=== PATIENT | male | born 1950 | race African-American/Black ===

== ENCOUNTER 2024-02-17 17:07 | Inpatient (IN) | payer MEDICARE ==
[~2024-02-17] VITALS: Ht 188 cm; Wt 81.6 kg
[2024-02-17 17:14] VITALS: O2SAT 96
[2024-02-17 19:02] LABS: CLARITY URINE CLEAR (CLEAR); COLOR URINE DARK YELLOW (YELLOW); GLUCOSE URINE NEGATIVE (NEGATIVE); KETONES URINE NEGATIVE (NEGATIVE); LEUKOCYTE ESTERASE URINE TRACE (NEGATIVE); NITRITE URINE NEGATIVE (NEGATIVE); OCCULT BLOOD URINE TRACE (NEGATIVE); PROTEIN URINE NEGATIVE (NEGATIVE); SPECIFIC GRAVITY URINE 1.011 (1.005-1.030)
[2024-02-17 19:22] LABS: SQUAMOUS EPITHELIAL CELL URINE NONE SEEN /lpf (RARE/1+); WBC URINE 0-2 /hpf (0-2)
[2024-02-17 19:23] LABS: BACTERIA URINE 1+
[2024-02-17 19:30] LABS: HEMATOCRIT. 32.6 % (42.0-52.0); HEMOGLOBIN. 10.3 g/dL (14.0-18.0); MEAN CORPUSCULAR HEMOGLOBIN 34.3 pg (28.0-32.0); MEAN CORPUSCULAR HGB CONC 31.6 g/dL (31.0-37.0); MEAN CORPUSCULAR VOLUME 108.6 fL (80.0-94.0); MEAN PLATELET VOLUME 8.5 fl (7.4-10.4); PLATELET 386 x1000/uL (130-400); RED CELL DISTRIBUTION WIDTH 20.3 % (11.6-14.6); WHITE BLOOD COUNT 20.4 x1000/uL (4.5-11.0)
[2024-02-17 19:31] LABS: CHLORIDE 99 mEq/L (98-107); SODIUM 140 mEq/L (136-145)
[2024-02-17 19:32] LABS: CALCIUM 9.6 mg/dL (8.7-10.4); CARBON DIOXIDE 16 mEq/L (21-32); DIFFERENTIAL COMMENT 1
[2024-02-17 19:33] LABS: INR 1.3; PROTHROMBIN TIME 14.3 sec (9.6-11.0)
[2024-02-17 19:37] LABS: CREATININE 2.9 mg/dL (0.6-1.3); GLUCOSE 230 mg/dL (70-105); UREA NITROGEN BLOOD 26 mg/dL (9-23)
[2024-02-17 19:39] LABS: ALANINE AMINOTRANSFERASE 23 IU/L (10-49); ALBUMIN 4.4 g/dL (3.2-4.8); ASPARTATE AMINOTRANSFERASE 67 IU/L (<34); BILIRUBIN DIRECT 0.5 mg/dL (<=3.0); BILIRUBIN TOTAL 1.3 mg/dL (0.1-1.0)
[2024-02-17 20:04] LABS: ANISOCYTOSIS 1+; NUCLEATED RED BLOOD CELLS 2 /100 WBC; PLATELET ESTIMATE NORMAL
[2024-02-17 20:08] LABS: POTASSIUM 2.6 mEq/L (3.5-5.1)
[2024-02-17 20:09] LABS: TROPONIN I HIGH SENSITIVITY 81 ng/L (3.0-53)
[2024-02-17] MEDS: POTASSIUM CHLORIDE 20MEQ/PACKET PO NR (20:55)
[2024-02-17] MEDS: SODIUM CHL 0.9% + KCL 20MEQ/L 1,000 ML IV ONE (21:06)
[2024-02-18] VITALS: BP_SYST 122; BP_SYST 144; BP_DIAS 71; PULSE 125; RESP 18; TEMP 97.3
[2024-02-18] MEDS ORDERED: METF-873 MT (02:17)
[2024-02-18] MEDS ORDERED: PANT40TA51 MT (02:17)
[2024-02-18] MEDS ORDERED: LISI-186 MT (02:17)
[2024-02-18] MEDS ORDERED: ATOR20TA65 MT (02:17)
[2024-02-18] MEDS ORDERED: ASPI-1160 MT (02:17)
[2024-02-18 04:35] VITALS: BP 141/71; PULSE 125; RESP 20; TEMP 97.3
[2024-02-18] MEDS ORDERED: DEXTROSE 50% WATER 50ML SYRINGE IV PRN (06:00)
[2024-02-18] MEDS ORDERED: HYDROCODONE/ACETAMINOPHEN 5/325MG TABLET PO PRN (06:00)
[2024-02-18] MEDS ORDERED: ACETAMINOPHEN 325MG TABLET PO PRN ×2 (06:00→20:00)
[2024-02-18] MEDS: BLOOD SUGAR DIAGNOSTIC STRIP TEST SCH (06:31)
[2024-02-18] MEDS: INSULIN LISPRO 100 UNITS/ML SUBCUT SCH (06:34)
[2024-02-18 08:00] VITALS: BP 141/82; PULSE 116; RESP 18; TEMP 97.9
[2024-02-18] MEDS: ENOXAPARIN 40MG/0.4ML SYR SUBCUT SCH (09:34)
[2024-02-18 12:00] VITALS: BP_SYST 115; BP_SYST 117; BP_DIAS 72; BP_DIAS 84; PULSE 119; RESP 18; RESP 19; TEMP 97.5
[2024-02-18 12:37] LABS: HEMATOCRIT. 30.2 % (42.0-52.0); HEMOGLOBIN. 9.7 g/dL (14.0-18.0); MEAN CORPUSCULAR HEMOGLOBIN 34.8 pg (28.0-32.0); MEAN CORPUSCULAR VOLUME 108.7 fL (80.0-94.0); PLATELET 342 x1000/uL (130-400); RED BLOOD CELL COUNT 2.78 mill/uL (4.7-6.1); RED CELL DISTRIBUTION WIDTH 19.9 % (11.6-14.6); WHITE BLOOD COUNT 15.8 x1000/uL (4.5-11.0)
[2024-02-18 12:43] LABS: DIFFERENTIAL COMMENT 1
[2024-02-18 12:47] LABS: POTASSIUM 3.1 mEq/L (3.5-5.1)
[2024-02-18 12:48] LABS: CALCIUM 8.9 mg/dL (8.7-10.4)
[2024-02-18 12:52] LABS: CREATININE 2.5 mg/dL (0.6-1.3)
[2024-02-18] MEDS: POTASSIUM CHLORIDE 20MEQ/PACKET PO NR (14:06)
[2024-02-18] MEDS: METOPROLOL TARTRATE 25MG TABLET PO SCH (15:24)
[2024-02-18] MEDS: ASPIRIN 81MG EC TABLET PO SCH (15:24)
[2024-02-18 16:00] VITALS: BP 124/68; PULSE 107; RESP 18; TEMP 97.7
[2024-02-18] MEDS ORDERED: NALOXONE HCL 0.4MG/ML VIAL IV PRN (17:30)
[2024-02-18 17:44] LABS: HEMATOCRIT. 27.8 % (42.0-52.0); HEMOGLOBIN. 9.1 g/dL (14.0-18.0); MEAN CORPUSCULAR HEMOGLOBIN 34.5 pg (28.0-32.0); MEAN CORPUSCULAR HGB CONC 32.7 g/dL (31.0-37.0); MEAN CORPUSCULAR VOLUME 105.4 fL (80.0-94.0); MEAN PLATELET VOLUME 8.2 fl (7.4-10.4); PLATELET 302 x1000/uL (130-400); RED BLOOD CELL COUNT 2.64 mill/uL (4.7-6.1); RED CELL DISTRIBUTION WIDTH 19.7 % (11.6-14.6); WHITE BLOOD COUNT 14.8 x1000/uL (4.5-11.0)
[2024-02-18 17:45] LABS: DIFFERENTIAL COMMENT 1
[2024-02-18 18:06] LABS: CHLORIDE 107 mEq/L (98-107); POTASSIUM 3.4 mEq/L (3.5-5.1); SODIUM 142 mEq/L (136-145)
[2024-02-18 18:07] LABS: CARBON DIOXIDE 23 mEq/L (21-32)
[2024-02-18 18:09] LABS: HYPOCHROMASIA 1+; PLATELET ESTIMATE NORMAL
[2024-02-18 18:12] LABS: CREATININE 2.2 mg/dL (0.6-1.3); GLUCOSE 159 mg/dL (70-105)
[2024-02-18 18:13] LABS: UREA NITROGEN BLOOD 39 mg/dL (9-23)
[2024-02-18 18:19] LABS: PLATELET ESTIMATE NORMAL
[2024-02-18 18:25] LABS: CREATINE KINASE 1494 IU/L (46-171)
[2024-02-18 20:00] VITALS: BP 134/91; PULSE 118; RESP 19; TEMP 98.2
[2024-02-18] MEDS ORDERED: CLONIDINE 0.1MG TABLET PO PRN (20:00)
[2024-02-18] MEDS ORDERED: ONDANSETRON HCL 4MG/2ML INJ IV PRN (20:00)
[2024-02-18] MEDS ORDERED: ENOXAPARIN 40MG/0.4ML SYR SUBCUT SCH (20:00)
[2024-02-18] MEDS: CEFTRIAXONE 2GM/50ML 50 ML IV SCH (20:53)
[2024-02-18] MEDS: ATORVASTATIN CALCIUM 40MG TABLET PO SCH (20:53)
[2024-02-18] MEDS: ASPIRIN 81MG TABLET PO SCH (20:59)
[2024-02-18] MEDS ORDERED: ATORVASTATIN CALCIUM 20MG TABLET PO SCH (21:00)
[2024-02-19] VITALS: BP 130/88; PULSE 115; RESP 17; TEMP 97.8
[2024-02-19 03:48] LABS: BASOPHILS % 0.1 % (0.0-2.0); DIFFERENTIAL COMMENT 0; EOSINOPHILS % 0.2 % (0.0-5.0); HEMATOCRIT. 31.1 % (42.0-52.0); LYMPHOCYTES % 8.3 % (20.0-50.0); MEAN CORPUSCULAR HEMOGLOBIN 34.9 pg (28.0-32.0); MEAN CORPUSCULAR HGB CONC 32.2 g/dL (31.0-37.0); MEAN CORPUSCULAR VOLUME 108.3 fL (80.0-94.0); MEAN PLATELET VOLUME 8.1 fl (7.4-10.4); MONOCYTES % 10.8 % (2.0-8.0); NEUTROPHILS % 80.6 % (40.0-76.0); PLATELET 313 x1000/uL (130-400); RED BLOOD CELL COUNT 2.87 mill/uL (4.7-6.1); RED CELL DISTRIBUTION WIDTH 20.1 % (11.6-14.6); WHITE BLOOD COUNT 11.3 x1000/uL (4.5-11.0)
[2024-02-19 04:00] VITALS: BP 134/77; PULSE 113; RESP 19; TEMP 97.7
[2024-02-19 04:09] LABS: POTASSIUM 3.1 mEq/L (3.5-5.1)
[2024-02-19 04:10] LABS: CALCIUM 9.3 mg/dL (8.7-10.4)
[2024-02-19 04:15] LABS: CREATININE 1.7 mg/dL (0.6-1.3)
[2024-02-19 08:00] VITALS: BP 98/73; PULSE 117; RESP 18; TEMP 96.2
[2024-02-19] MEDS: ENOXAPARIN 30MG/0.3ML SYR SUBCUT SCH (09:34)
[2024-02-19] MEDS: POTASSIUM CHLORIDE 20MEQ TABLET SR PO NR (09:35)
[2024-02-19 12:00] VITALS: BP 137/77; PULSE 86; RESP 18; TEMP 86
[2024-02-19 12:05] LABS: ALBUMIN 3.8 g/dL (3.2-4.8); PREALBUMIN 5.4 mg/dl (10.0-40.0)
[2024-02-19] MEDS: MAGNESIUM 2 G PREMIX 50 ML IV NR (13:40)
[2024-02-19 16:00] VITALS: BP 112/64; PULSE 110; RESP 18; TEMP 98.5
[2024-02-19] MEDS: POTASSIUM CHLORIDE 20MEQ/PACKET PO NR (17:39)
[2024-02-19 18:42] LABS: T4 FREE 1.36 ng/dL (0.89-1.76); THYROID STIMULATING HORMONE 0.66 uIU/mL (0.55-4.78)
[2024-02-19 20:00] VITALS: BP 120/66; PULSE 88; RESP 17; TEMP 97.7
[2024-02-20] VITALS: BP 118/68; PULSE 88; RESP 19; TEMP 98
[2024-02-20 04:00] VITALS: BP 145/74; PULSE 89; RESP 17; TEMP 97.5
[2024-02-20 08:00] VITALS: BP 143/72; PULSE 77; RESP 16; TEMP 97.5
[2024-02-20 08:38] LABS: TROPONIN I HIGH SENSITIVITY 37 ng/L (3.0-53)
[2024-02-20] MEDS: CARVEDILOL 3.125 MG TABLET PO SCH (09:51)
[2024-02-20 10:16] LABS: CHLORIDE 108 mEq/L (98-107); POTASSIUM 4.2 mEq/L (3.5-5.1); SODIUM 140 mEq/L (136-145)
[2024-02-20 10:17] LABS: CALCIUM 9.2 mg/dL (8.7-10.4); CARBON DIOXIDE 19 mEq/L (21-32)
[2024-02-20 10:22] LABS: CREATININE 1.2 mg/dL (0.6-1.3); GLUCOSE 127 mg/dL (70-105); UREA NITROGEN BLOOD 27 mg/dL (9-23)
[2024-02-20 10:24] LABS: PHOSPHORUS 2.5 mg/dL (2.5-4.9)
[2024-02-20 12:00] VITALS: BP 109/81; PULSE 87; RESP 16; TEMP 97
[2024-02-20 16:00] VITALS: BP 112/63; PULSE 80; RESP 14; TEMP 96.9
[2024-02-20 16:40] LABS: BASOPHILS % 0.1 % (0.0-2.0); DIFFERENTIAL COMMENT 0; EOSINOPHILS % 1.4 % (0.0-5.0); HEMATOCRIT. 29.8 % (42.0-52.0); HEMOGLOBIN. 9.8 g/dL (14.0-18.0); LYMPHOCYTES % 9.6 % (20.0-50.0); MEAN CORPUSCULAR HEMOGLOBIN 35.1 pg (28.0-32.0); MEAN CORPUSCULAR HGB CONC 32.9 g/dL (31.0-37.0); MEAN CORPUSCULAR VOLUME 106.6 fL (80.0-94.0); MEAN PLATELET VOLUME 7.8 fl (7.4-10.4); MONOCYTES % 10.1 % (2.0-8.0); NEUTROPHILS % 78.8 % (40.0-76.0); PLATELET 287 x1000/uL (130-400); RED BLOOD CELL COUNT 2.79 mill/uL (4.7-6.1); RED CELL DISTRIBUTION WIDTH 19.7 % (11.6-14.6); WHITE BLOOD COUNT 9.4 x1000/uL (4.5-11.0)
== END 2024-02-20 18:30 | DRG 871 ==
LOC: ER 17:07 → 7EST 20:53 → EDBEDREQSVC 21:14 → EDBEDREQ 21:14 → EDBEDREQTM 21:14
PROVIDERS: ADMIT Internal Medicine; ATTEND Internal Medicine
DX: A41.9 Sepsis, unspecified organism (principal); I21.A1 Myocardial infarction type 2; N39.0 Urinary tract infection, site not specified; N17.9 Acute kidney failure, unspecified; E87.20 Acidosis, unspecified; M62.82 Rhabdomyolysis; E87.6 Hypokalemia; E11.65 Type 2 diabetes mellitus with hyperglycemia; I25.10 Atherosclerotic heart disease of native coronary artery without angina pectoris; F10.10 Alcohol abuse, uncomplicated; Y90.9 Presence of alcohol in blood, level not specified; L89.896 Pressure-induced deep tissue damage of other site; S50.812A Abrasion of left forearm, initial encounter; X58.XXXA Exposure to other specified factors, initial encounter; E11.22 Type 2 diabetes mellitus with diabetic chronic kidney disease; I12.9 Hypertensive chronic kidney disease with stage 1 through stage 4 chronic kidney disease, or unspecified chronic kidney disease; N18.9 Chronic kidney disease, unspecified; D53.9 Nutritional anemia, unspecified; Z95.1 Presence of aortocoronary bypass graft; Z95.2 Presence of prosthetic heart valve; Y93.89 Activity, other specified; Y92.89 Other specified places as the place of occurrence of the external cause; Y99.8 Other external cause status
CPT/HCPCS: 36415; 71045; 76770; 80048; 80061; 80076; 81003; 82040; 82550; 82962; 83036; 83735; 84100; 84134; 84145; 84439; 84443; 84481; 84484; 85025; 93005; 93306; 93970; 99285; J0696; J1650; J1815; J3475; J3480

== ENCOUNTER 2024-10-14 15:13 | Emergency (ER) | payer MEDICARE, OTHER ==
[~2024-10-14] VITALS: Ht 177.8 cm; Wt 85.0 kg
[~2024-10-14 15:13] MED LIST: ASPI-1160 MT; ATOR20TA65 MT; LISI-186 MT; METF-1149 MT; PANT40TA51 MT
[2024-10-14 15:15] VITALS: O2SAT 100
[2024-10-14] MEDS: TETANUS, DIPHTHERIA, PERTUSSIS VAC/PF 0.5ML (>10YR OLD) IM ONE (16:54)
[2024-10-14] MEDS: BACITRACIN ZINC OINT UDPKT TOP ONE (17:01)
[2024-10-14 18:27] VITALS: BP 122/75; PULSE 95; RESP 17; TEMP 36.7; O2SAT 100
== END 2024-10-14 18:28 | disposition home or self-care (01) ==
LOC: ER 15:13
DX: S01.112A Laceration without foreign body of left eyelid and periocular area, initial encounter (principal); E11.9 Type 2 diabetes mellitus without complications; I11.0 Hypertensive heart disease with heart failure; I50.9 Heart failure, unspecified; Z79.84 Long term (current) use of oral hypoglycemic drugs; Z79.899 Other long term (current) drug therapy; Z95.1 Presence of aortocoronary bypass graft; Z79.82 Long term (current) use of aspirin; W19.XXXA Unspecified fall, initial encounter; Y93.89 Activity, other specified; Y92.89 Other specified places as the place of occurrence of the external cause; Y99.8 Other external cause status
CPT/HCPCS: 12011; 90471; 90715; 99285